=== PATIENT | female | born 1990 | race African-American/Black ===

== ENCOUNTER 2018-06-01 22:29 | Emergency (ER) | payer OTHER ==
[~2018-06-01] VITALS: Ht 165.1 cm; Wt 84.4 kg
[2018-06-01 22:44] VITALS: BP 133/70
--- NOTE | 2018-06-01 22:46 | NUR ---
ED Nurse Note: Patient presents to ED c/o wanting an ultrasound performed to determine how many weeks she is. patient states she was seen by a DR who told her she has a positive urine test. Patient denies all medical complaints at this time. patient states her last period was in april. Patient seen by COOPER at bedside.
[2018-06-01 23:09] LABS: APPEARANCE,URINE SLIGHTLY CLOUDY; BILIRUBIN, URINE NEGATIVE (NEGATIVE); COLOR,URINE PALE YELLOW; GLUCOSE, URINE (UA) NEGATIVE (NEGATIVE); KETONES,URINE NEGATIVE (NEGATIVE); LEUKOCYTE ESTERASE ,URINE NEGATIVE (NEGATIVE); NITRITE,URINE NEGATIVE (NEGATIVE); PH,URINE 7 (4.5-8.0); PROTEIN,URINE NEGATIVE (NEGATIVE); UROBILINOGEN,URINE NORMAL MG/DL (0.0-1.0)
--- NOTE | 2018-06-02 00:18 | Emergency Room Report ---
History of Present Illness General Chief Complaint: General Complaint Source: Patient Present Illness HPI Patient presents wanting to know how many weeks she is. She states her last period was somewhere in April. She denies nausea, vomiting, diarrhea , vaginal bleeding, discharge dysuria or chills, shortness of breath or chest pain, leg edema extremity pain. She also denies headache. Allergies: Coded Allergies: No Known Allergies (Unverified , 06/01/18) Patient History Past Medical History: see triage record Social History: Denies: smoking Last Menstrual Period: Pregancy now Now: No Reviewed Nursing Documentation: PMH: Agreed; PSxH: Agreed Nursing Documentation-PMH Past Medical History: No Stated History Review of Systems All Other Systems: negative except mentioned in HPI Physical Exam Vital Signs Date Time Temp Pulse Resp B/P (MAP) Pulse Ox O2 Delivery O2 Flow Rate FiO2 06/01/18 22:35 98.2 104 20 133/70 98 Room Air Sp02 EP Interpretation: reviewed, normal General Appearance: well appearing, no apparent distress Head: normocephalic, atraumatic Eyes: bilateral eye normal inspection ENT: hearing grossly normal, normal voice, moist mucus membranes Neck: full range of motion, supple Respiratory: lungs clear, no respiratory distress, speaking full sentences Cardiovascular #1: regular rate, rhythm Cardiovascular #2: 2+ radial (R) Gastrointestinal: normal bowel sounds, non tender, soft Genitourinary: no CVA tenderness, deferred - Patient declines pelvic exam Musculoskeletal: digits/nails normal, gait/station normal Neurologic: alert, normal gait, grossly normal Psychiatric: mood/affect normal Skin: no rash Medical Decision Making Diagnostic Impression: Primary Impression: First trimester ER Course Patient presents requesting to know how far along in her she has. Discussed acute form of blood test. She agreed to this. Quantitative hCG 92,443. When I reviewed these results with her is very upset that we did not perform an ultrasound. Stated that she had never requested an ultrasound and that did not have performed an ultrasound at this time as she has no other symptoms. I pointed out that when I discussed the plan to draw her blood and asked her if she had questions she did not mention anything about ultrasound. The patient has vitamins. Advised that she needs to follow-up with her GEOMATICS PROFESSOR. Patient stable for outpatient observation and treatment. Laboratory Tests Test 06/01/18 22:45 06/01/18 23:08 Urine Color Pale yellow Urine Appearance Slightly cloudy Urine pH 7 (4.5-8.0) Urine Specific [place] 1.015 (1.005-1.035) Urine Protein Negative (NEGATIVE) Urine Glucose (UA) Negative (NEGATIVE) Urine Ketones Negative (NEGATIVE) Urine Blood Negative (NEGATIVE) Urine Nitrite Negative (NEGATIVE) Urine Bilirubin Negative (NEGATIVE) Urine Urobilinogen Normal MG/DL (0.0-1.0) Urine Leukocyte Esterase Negative (NEGATIVE) Urine RBC 0 /HPF (0 - 2) Urine WBC 0-2 /HPF (0 - 2) Urine Squamous Epithelial Cells Few /LPF (NONE/OCC) Urine Amorphous Sediment Many /LPF (NONE) H Urine Bacteria Few /HPF (NONE) Human Chorionic Gonadotropin, Quant 82308 mIU/mL (1-6) H Last Vital Signs Date Time Temp Pulse Resp B/P (MAP) Pulse Ox O2 Delivery O2 Flow Rate FiO2 06/02/18 00:32 98.2 104 20 133/70 98 Room Air Status: unchanged Disposition: HOME, SELF-CARE Condition: Stable Scripts Acetaminophen (Tylenol) 325 Mg Tablet 650 MG ORAL Q6H PRN for Prn Pain/Headache/Temp > 101, #20 TAB 0 Refills Prov: Saeed Velez MD 06/02/18 Referrals: NOT CHOSEN IPA/,REFERRING (PCP) Saeed Velez MD Jun 02, 2018 00:18
[2018-06-02] MEDS ORDERED: TYLENOL325 MG ORAL (00:23)
[2018-06-02 00:32] VITALS: BP 133/70
--- NOTE | 2018-06-02 00:33 | NUR ---
ER DISCHARGE NOTE: Patient is cleared to be discharged per ERMD, pt is aox4, on room air, with stable vital signs. pt was given dc and prescription instructions, pt was able to verbalize understanding, pt id band and iv site removed without complications. pt is able to ambulate with steady gait. pt took all belongings.
== END 2018-06-02 00:33 | disposition home or self-care (01) ==
LOC: EMR 22:56
DX: Z34.01 Encounter for supervision of normal first pregnancy, first trimester (principal)
CPT/HCPCS: 36415; 81003; 84702; 99283